=== PATIENT | male | born 1970 | race Caucasian/White ===

== ENCOUNTER 2021-05-01 15:58 | Inpatient (IN) | payer OTHER ==
[~2021-05-01] VITALS: Ht 182.9 cm; Wt 62.1 kg
[2021-05-01 16:00] VITALS: BP 111/75
[2021-05-01 16:53] LABS: ABSOLUTE NEUTROPHILS 6.7 thou/uL (1.4-8.2); BASOPHILS 0.4 % (0.0-2.0); EOSINOPHILS 0.2 % (0.0-3.0); HEMATOCRIT 28.5 % (42.0-52.0); HEMOGLOBIN 9.5 gm/dL (14.0-18.0); LYMPHOCYTES 7.7 % (24.0-44.0); MCHC 33.4 g/dL (28.0-37.0); MCV 77.7 fL (80.0-100.0); MONOCYTES 10.2 % (1.0-8.0); PLATELET COUNT 238 thou/uL (150-400); POLYS 81.5 % (36.0-66.0); RBC 3.66 mil/uL (4.50-6.00); WBC 8.2 thou/uL (4.0-11.0)
[2021-05-01 16:59] LABS: CALCIUM 8.4 mg/dL (8.5-10.1); CREATININE 0.8 mg/dL (0.7-1.3); POTASSIUM 4.2 mmol/L (3.5-5.1)
[2021-05-01 17:04] LABS: ALBUMIN 2.2 g/dL (3.4-5.0); DIRECT BILIRUBIN 0.4 mg/dL (<0.1-0.2); TOTAL BILIRUBIN 0.6 mg/dL (0.2-1.0); TOTAL PROTEIN 6.1 g/dL (6.4-8.2)
[2021-05-01 17:14] LABS: APTT 28.2 Seconds (24.5-32.8); INR 1.28; PROTIME 13.8 Seconds (10.5-12.1)
[2021-05-02 00:30] VITALS: BP 114/80
[2021-05-02 02:00] VITALS: BP 94/55
--- NOTE | 2021-05-02 13:01 | EKG ---
[address] [place] [address] ELECTROCARDIOGRAM REPORT Name: MYNOR ESPARZA Room #: 170-5 [facility] M.R.#: [id number] Admission: 05/01/21 Attend Phys: Norris Hitchcock MD Discharge: 05/02/21 Date of : 74 Report #: [id number] [facility] ED Test Date: 2021-05-01 Test Time: 16:10:42 Pat Name: MYNOR ESPARZA Department: Room: 170 5 Gender: M Window Assembler: JCHAIMARGARETTE : 1970 Requested By: Norris Hitchcock Order Number: [id number] MD: Santos Fleming Measurements Intervals [place] Rate: 122 P: 28 MA: 126 QRS: 15 QRSD: 86 T: 33 QT: 314 QTc: 448 Interpretive Statements Sinus tachycardia Probable left atrial enlargement Borderline low voltage, extremity leads Baseline wander in lead(s) V5 No previous ECG available for comparison Electronically Signed On 05-02-2021 13:01:15 CDT by Santos Fleming [email or web address] <ELECTRONICALLY SIGNED> By: Santos Fleming MD, [facility] 05/02/21 1301 161 09 Santos Fleming MD, [facility] /EPI
== END 2021-05-02 03:45 | disposition left against medical advice (07) | DRG 436 ==
LOC: ER 15:58 → EROBS 19:37
PROVIDERS: Emergency Medicine; ADMIT Hospitalist; ATTEND Hospitalist
DX: C25.9 Malignant neoplasm of pancreas, unspecified (principal); C78.7 Secondary malignant neoplasm of liver and intrahepatic bile duct; C78.00 Secondary malignant neoplasm of unspecified lung; C78.5 Secondary malignant neoplasm of large intestine and rectum; R18.0 Malignant ascites; F17.210 Nicotine dependence, cigarettes, uncomplicated; Z80.8 Family history of malignant neoplasm of other organs or systems; Z88.0 Allergy status to penicillin